=== PATIENT | female | born 1965 | race Caucasian/White ===

== ENCOUNTER 2018-03-25 17:36 | Emergency (ER) | payer OTHER ==
[~2018-03-25] VITALS: Ht 167.6 cm; Wt 61.2 kg
[2018-03-26] MEDS ORDERED: IRON1TAB4 PO (00:18)
[2018-03-26] MEDS ORDERED: BUTALB-ACETAMI1 EACH PO (00:18)
== END 2018-03-26 00:25 | disposition home or self-care (01) ==
LOC: ER 17:36
DX: G43.909 Migraine, unspecified, not intractable, without status migrainosus (principal); D64.9 Anemia, unspecified; E07.89 Other specified disorders of thyroid

== ENCOUNTER 2018-03-28 08:22 | Outpatient (CLI) | payer OTHER ==
[~2018-03-28 08:22] MED LIST: BUTALB-ACETAMI1 EACH PO; IRON1TAB4 PO
== END 2018-03-28 08:28 | disposition home or self-care (01) ==
LOC: MAMO-SONO 08:22
DX: Z12.39 Encounter for other screening for malignant neoplasm of breast (principal); R10.814 Left lower quadrant abdominal tenderness; D64.89 Other specified anemias; E03.8 Other specified hypothyroidism

== ENCOUNTER 2018-04-05 08:41 | Outpatient (CLI) | payer OTHER | END 2018-04-05 08:57 | disposition home or self-care (01) | LOC: MRI 08:41 | DX: R51 Headache (principal); D64.89 Other specified anemias | CPT/HCPCS: 70551 ==

== ENCOUNTER 2022-06-14 07:28 | Outpatient (CLI) | payer OTHER | END 2022-06-14 07:50 | disposition home or self-care (01) | LOC: MAMO-SONO 07:28 | PROVIDERS: ATTEND Obstetrics & Gynecology | DX: Z12.31 Encounter for screening mammogram for malignant neoplasm of breast (principal); N60.11 Diffuse cystic mastopathy of right breast; N60.12 Diffuse cystic mastopathy of left breast ==